=== PATIENT | female | born 1960 ===

== ENCOUNTER 2022-01-22 08:10 | Outpatient (CLI) | payer OTHER ==
--- NOTE | 2022-01-22 11:39 | XRAY Report ---
PROCEDURE: Hip w/Pelvis 2-3V LT INDICATIONS: PAIN OF LEFT HIP JOINT TECHNIQUE: AP pelvis with lateral view(s) of the left hip(s). COMPARISON: None. FINDINGS: Bones: No fractures or dislocations. Pelvic ring appears intact. No suspicious bony lesions. Moder ate left hip osteoarthritis with osseous hypertrophy, subchondral sclerosis and mild joint space narr owing. Soft tissues: The visualized bowel gas pattern is normal. No suspicious soft tissue calcifications. IMPRESSION: Moderate left hip osteoarthritis. Reviewed by: Pastora Calloway MD, PhD on 01/22/2022 11:38 AM PDT Approved by: Pastora Calloway MD, PhD on 01/22/2022 11:38 AM PDT Station ID: [id number]
--- NOTE | 2022-01-23 08:41 | XRAY Report ---
PROCEDURE: Knee 3 View LT INDICATIONS: PAIN OF LEFT KNEE JOINT TECHNIQUE: 3 views of the left knee(s) were acquired. COMPARISON: None. FINDINGS: Bones: Linear lucency and cortical irregularity in the lateral tibial plateau, suspicious for fractur e. No suspicious bony lesions. Mild tricompartmental knee joint degeneration. Osteopenia. Soft tissues: No joint effusion. No suspicious soft tissue calcifications. IMPRESSION: 1. Suspect lateral tibial plateau fracture. If clinically indicated, CT or MRI is suggested for follo w-up. 2. Mild degenerative joint disease. 3. Osteopenia. Reviewed by: Eddy New MD on 01/23/2022 8:39 AM PDT Approved by: Eddy New MD on 01/23/2022 8:39 AM PDT Station ID: [id number]
== END 2022-01-22 08:11 | disposition home or self-care (01) ==
LOC: DI.S 08:10
PROVIDERS: ATTEND Nurse Practitioner Family
DX: M16.12 Unilateral primary osteoarthritis, left hip (principal); M17.12 Unilateral primary osteoarthritis, left knee; M85.862 Other specified disorders of bone density and structure, left lower leg; R93.6 Abnormal findings on diagnostic imaging of limbs

== ENCOUNTER 2022-03-19 08:28 | Outpatient (CLI) | payer OTHER ==
[2022-03-19 14:49] LABS: BASOPHILS # (AUTO) 0.1 10^3/uL (0.0-0.1); BASOPHILS % (AUTO) 1.8 %; EOSINOPHILS # (AUTO) 0.1 10^3/uL (0.0-0.7); EOSINOPHILS % (AUTO) 2.9 %; HCT - HEMATOCRIT 42.1 % (37.0-47.0); HGB - HEMOGLOBIN 13.8 g/dL (12.0-16.0); LYMPHOCYTES # (AUTO) 1.1 10^3/uL (1.5-3.5); MEAN CORPUSCULAR HEMOGLOBIN 30.1 pg (27.0-31.0); MEAN CORPUSCULAR HGB CONC 32.8 g/dL (32.0-36.0); MEAN CORPUSCULAR VOLUME 91.9 fL (81.0-99.0); MONOCYTES # (AUTO) 0.5 10^3/uL (0.0-1.0); MONOCYTES % (AUTO) 10.7 %; NEUTROPHILS # (AUTO) 2.7 10^3/uL (1.5-6.6); NEUTROPHILS % (AUTO) 59.4 %; PLT - PLATELET COUNT 341 10^3/uL (130-450); RED BLOOD COUNT 4.58 10^6/uL (4.20-5.40); RED CELL DISTRIBUTION WIDTH 12.6 % (12.0-15.0); WHITE BLOOD COUNT 4.5 x10^3/uL (4.8-10.8)
[2022-03-19 15:06] LABS: THYROID STIMULATING HORMONE 2.04 uIU/mL (0.34-5.60)
[2022-03-19 20:15] LABS: ESTIMATED AVERAGE GLUCOSE 105 mg/dL (70-100); HEMOGLOBIN A1c% 5.3 % (4.27-6.07)
== END 2022-03-19 08:29 | disposition home or self-care (01) ==
LOC: LAB.S 08:28
PROVIDERS: ATTEND Nurse Practitioner Family
DX: R00.2 Palpitations (principal); Z13.1 Encounter for screening for diabetes mellitus
CPT/HCPCS: 36415; 83036; 84443; 85025